=== PATIENT | male | born 1960 | race Caucasian/White ===

== ENCOUNTER 2016-08-07 13:44 | Inpatient (IN) ==
[2016-08-07] MEDS ORDERED: *HR* Morphine 2 MG/ML SYRINGE IVP PRN (17:17)
[2016-08-07] MEDS ORDERED: Ondansetron 4 MG/2 ML VIAL IVP PRN (17:17)
[2016-08-07] MEDS ORDERED: Acetaminophen 325 MG TABLET PO PRN (17:17)
[2016-08-07] MEDS ORDERED: *HR* HYDROcodone/Acet 5/325 mg TABLET PO PRN (17:17)
[2016-08-07] MEDS ORDERED: Naloxone 0.4 MG/ML INJ IVP PRN (17:17)
[2016-08-07] MEDS ORDERED: Fluticasone Propionate Nasal 50 MCG/SPRAY BOTTLE NS PRN (17:19)
[2016-08-07] MEDS ORDERED: Loratadine 10 MG TABLET PO PRN (17:19)
--- NOTE | 2016-08-07 17:23 | Internal Med History&Physical ---
Date of Encounter: 08/07/16 Time of Encounter: 17:22 Assessment and Plan (1) Sepsis Current visit: Yes Status: Acute Sepsis criteria met with fever, tachycardia,leukocytosis and pneumonia Blood culture has been drawn and sent in the ER Will send sputum culture Patient received one dose of levaquin Will change to Zosyn for borader coverage and anerobic coverage No evidence of organ damage, BP is WNL, PLT WNL, normal lactate Patient will be placed NPO Continue D5/0.9% saline at 100cc/hr Qualifiers: Sepsis type: sepsis due to unspecified organism Qualified Code(s): A41.9 - Sepsis, unspecified organism (2) Pneumonia Current visit: Yes Status: Acute Based on history and location of infiltrates, most likely aspiration pneumonia Follow sputum culture Send urine legionella and Strep Mgt as in sepsis as above No increasing O2 requirement at this time, keep on pulse ox continuously Qualifiers: Pneumonia type: aspiration pneumonia Aspiration pneumonia type: unspecified Laterality: right Lung location: lower lobe of lung Qualified Code(s): J69.0 - Pneumonitis due to inhalation of food and vomit (3) Dysphagia Current visit: Yes Status: Chronic Speech eval NPO for now, except medications , which may be given in thickened liquids Qualifiers: Dysphagia type: oropharyngeal phase Qualified Code(s): R13.12 - Dysphagia, oropharyngeal phase (4) Hypertension Current visit: Yes Status: Chronic Resume home meds Qualifiers: Hypertension type: essential hypertension Qualified Code(s): I10 - Essential (primary) hypertension (5) Cerebral palsy Current visit: Yes Status: Chronic Chronic, stable Qualifiers: Cerebral palsy type: unspecified type Qualified Code(s): G80.9 - Cerebral palsy, unspecified Internal Medicine - H&P: HPI Chief complaint: Feeling of unwell Admitted From: Home Plans for Post Hospital Care: Home History of present illness: Mr. De La Torre is a 56 year old male History is obtained from patient's uncle at the bedside and information collated from EMR 56 Y/ M with Cerebral palsy, MRDD, HTN Patient has been having recurrent aspiration for the past 3 months, his uncle states he has been having problems swallowing liquids, and has been "choking" for at least 3 months, they had a referral for speech evaluation, he also recently had a barium studies that was terminated because patient had microaspirations This morning, the patient called his uncle and complained of dizziness, chills, and feeling unwell, his uncle took him to the ER at [facility] where he was found to be febrile, tachycardic, and with evidence of pneumonia on X-ray, he was transferred here for further evaluation He is seen at bedside, comfortable in no form of distress, with an occasional drool. Work up here revealed fever of 100.6, tachcyardia, saturating 95% on room air, leukocytosis of 18,000 with left shift, chem is WNL. CXR is noted for RML and RLL infiltrates Past Med Surg Social Fam HX - Past Medical History Medical history: hypertension, other Psychiatric history: no psych history - Past Surgical History Surgical History: herniorrhaphy, orthopedic, other - Social History Smoking Status: Never smoker Smokeless Tobacco Status: No Alcohol use: none Drug use: none Internal Medicine - H&P: Meds Lovastatin 10 mg PO HS 05/16/15 [History] Metoprolol XL (24 HR) Succ [Toprol Xl] 25 mg PO DAILY 05/16/15 [History] Oxaprozin [Daypro] 600 mg PO BID 05/16/15 [History] Fexofenadine HCl [Allergy Relief] 180 mg PO DAILY PRN 08/07/16 [History] Fluticasone Propionate Nasal [Flonase] 50 mcg NS DAILY PRN 08/07/16 [History] Montelukast [Singulair] 10 mg PO DAILY 08/07/16 [History] Allergies gabapentin Adverse Reaction (Verified 08/07/16 11:51) Vomiting All Systems PM: A 10-system review of systems was performed and is negative for pertinent findings except as documented above in the HPI. - Constitutional Constitutional: as per HPI - EENT Eyes: as per HPI Ears: as per HPI Nose, mouth and throat: as per HPI - Cardiovascular Cardiovascular ROS IM: as per HPI - Respiratory Respiratory: as per HPI - Gastrointestinal Gastrointestinal: as per HPI - Musculoskeletal Musculoskeletal ROS IM: as per HPI - Integumentary Integumentary IM: as per HPI - Endocrine Endocrine IM: as per HPI - Hematologic/Lymphatic Hematologic/Lymphatic: as per HPI - Allergic/Immunologic Allergic/Immunologic: as per HPI - Constitutional Vitals: Temp Pulse Resp BP Pulse Ox 100.6 F H 99 18 123/85 95 08/07/16 15:18 08/07/16 15:18 08/07/16 15:18 08/07/16 15:18 08/07/16 15:18 General appearance: Present: A&O X 3, pleasant, no acute distress - Head Head exam: Present: atraumatic - Eye Eye exam: Present: PERRL - ENT ENT exam: Present: mucous membranes moist Additional comments: Drooling, no pharyngeal exudates, uvula is midline, no lymphadenopathy - Neck Neck exam general surgery: Present: supple, trachea midline. Absent: lymphadenopathy - Respiratory Respiratory exam: Present: CTAB. Absent: accessory muscle use, rales, rhonchi, wheezes - Cardiovascular Cardiovascular exam: Present: RRR, +S1, +S2. Absent: diastolic murmur, gallop, rubs, systolic murmur - GI/Abdominal GI/Abdominal exam: Present: normal bowel sounds, soft, no peritoneal signs. Absent: distended, tenderness - Extremities Exam Extremities exam: Present: warm, radial pulses palpable and symetrical. Absent : calf tenderness, cyanotic, pedal edema - Neurological Exam Neurological exam: Present: alert, CN II-XII intact, oriented X3, strengths equal and symetr throughout, speech deficit - Skin Skin exam: Present: dry, intact
[2016-08-07] MEDS: D5% in 0.9% NACL 1,000 ML IVC SCH (19:05)
[2016-08-07] MEDS: *HR* Heparin 5,000 UNIT/ML VIAL SQ SCH (23:01)
[2016-08-07] MEDS: Piperacillin/Tazobactam 3.375 GM in D5% in Water (Mini-Bag+) 100 ML IVPB SCH (23:05)
[2016-08-08 05:53] LABS: Basophils % 0.2 %; Eosinophils # 0.1 K/mcL (0.0-0.6); Eosinophils % 0.3 %; Hematocrit 40.4 % (37.5-50.1); Hemoglobin 13.4 g/dL (12.9-16.9); Immature Granulocytes % 0.5 % (0-4); Lymphocytes # 1.5 K/mcL (0.6-4.6); Lymphocytes % 7.7 %; Mean Corpuscular HGB Conc 33.2 g/dL (31.6-35.5); Mean Corpuscular Hemoglobin 29.8 pg (28.0-33.3); Mean Platelet Volume 10.5 fL (9.4-12.4); Monocytes # 1.6 K/mcL (0.0-1.3); Neutrophils # 16.6 K/mcL (1.6-8.9); Platelet Count 274 K/mcL (140-400); Red Blood Count 4.49 M/mcL (4.19-5.50); Red Cell Distribution Width 13.3 % (11.5-14.5); Segmented Neutrophils % 83.3 %
[2016-08-08 06:10] LABS: BUN/Creatinine Ratio 15 (6-26); Blood Urea Nitrogen 13 mg/dL (8-26); Calcium 8.9 mg/dL (8.6-10.8); Carbon Dioxide 26 mEq/L (19-29); Chloride 106 mEq/L (98-109); Glucose 133 mg/dL (70-99); Osmolality,Calculated 292 (280-300); Potassium 3.7 mEq/L (3.5-4.5); Sodium 140 mEq/L (136-145); eGFR For African Americans > 60 (> 60); eGFR For Non-African Americans > 60 (> 60)
[2016-08-08] MEDS: *HR* Heparin 5,000 UNIT/ML VIAL SQ SCH ×3 (06:17→22:09)
[2016-08-08] MEDS: Piperacillin/Tazobactam 3.375 GM in D5% in Water (Mini-Bag+) 100 ML IVPB SCH ×3 (08:18→22:19)
[2016-08-08] MEDS: Diclofenac Sodium (24 HR) 100 MG TABLET PO SCH (08:22)
[2016-08-08] MEDS: Metoprolol XL (24 HR) Succ 25 MG TAB.ER.24H PO SCH (08:22)
[2016-08-08] MEDS: D5% in 0.9% NACL 1,000 ML IVC SCH (11:02)
[2016-08-08] MEDS ORDERED: *HR* HYDROcodone/Acet 10/325 mg TABLET PO PRN (12:11)
--- NOTE | 2016-08-08 12:11 | Internal Med Progress Note ---
Date of Encounter: 08/08/16 Time of Encounter: 12:10 - Assessment and plan (1) Sepsis Current Visit: Yes Status: Acute Assessment and plan: Sepsis criteria met with fever, tachycardia,leukocytosis and pneumonia Blood culture has been drawn and sent in the ER, pendin report Patient is afebrile, Tmax 102 08/07 Will send sputum culture Continue Zosyn Follow urine legionella and Strep No evidence of organ damage, BP is WNL, PLT WNL, normal lactate Continue IVF for now Qualifiers: Sepsis type: sepsis due to unspecified organism Qualified Code(s): A41.9 - Sepsis, unspecified organism (2) Pneumonia Current Visit: Yes Status: Acute Assessment and plan: Based on history and location of infiltrates, most likely aspiration pneumonia Follow sputum culture Send urine legionella and Strep Mgt as in sepsis as above No increasing O2 requirement at this time, keep on pulse ox continuously Qualifiers: Pneumonia type: aspiration pneumonia Aspiration pneumonia type: unspecified Laterality: right Lung location: lower lobe of lung Qualified Code(s): J69.0 - Pneumonitis due to inhalation of food and vomit (3) Dysphagia Current Visit: Yes Status: Chronic Assessment and plan: MBS with Orophayngeal phase dysphagia with aspiration 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 therapy Continue pureed diet and honey thickened liquids Speech therapy to continue to follow Qualifiers: Dysphagia type: oropharyngeal phase Qualified Code(s): R13.12 - Dysphagia, oropharyngeal phase (4) Hypertension Current Visit: Yes Status: Chronic Qualifiers: Hypertension type: essential hypertension Qualified Code(s): I10 - Essential (primary) hypertension (5) Cerebral palsy Current Visit: Yes Status: Chronic Assessment and plan: Functional, chronic, stable Qualifiers: Cerebral palsy type: unspecified type Qualified Code(s): G80.9 - Cerebral palsy, unspecified - Subjective Interval history: 56 M with MRDD, cerebaral palsy, functional at baseline and independent Admitted for management of sepsis secondary to recurrent aspiration pneumonia Seen at bedside, complains of a mild headache Speech and swallow eval noted for mid oropharyngeal and moderate pharyngeal dysphagia, MBS result noted for aspiration with thin liquds, diet has been modified per COIL CUTTER Remains afebrile, still with leukocytosis - Constitutional Vitals: Temp Pulse Resp BP Pulse Ox 97.4 F L 78 20 114/70 95 08/08/16 07:55 08/08/16 07:55 04/21/17 07:55 08/08/16 07:55 08/08/16 07:55 General appearance: Present: A&O X 3, pleasant, no acute distress - Head Head exam: Present: atraumatic, normocephalic - Eye Eye exam: Present: PERRL, conjuntiva pink, sclera anicteric Pupils: Present: PERRL - ENT ENT exam: Present: mucous membranes moist - Neck Neck exam general surgery: Present: supple, trachea midline. Absent: lymphadenopathy - Respiratory Respiratory exam: Present: CTAB. Absent: accessory muscle use, rales, rhonchi, wheezes - Cardiovascular Cardiovascular exam: Present: RRR, +S1, +S2. Absent: diastolic murmur, gallop, rubs, systolic murmur - GI/Abdominal GI/Abdominal exam: Present: normal bowel sounds, soft, no peritoneal signs. Absent: distended, tenderness - Extremities Exam Extremities exam: Present: warm, radial pulses palpable and symetrical. Absent : calf tenderness, cyanotic, pedal edema - Neurological Exam Neurological exam: Present: alert, CN II-XII intact, oriented X3, no focal deficits. Absent: pronater drift, facial droop, speech deficit - Skin Skin exam: Present: dry, intact Internal Medicine: Result - Labs CBC & Chem 7: 08/08/16 05:06 08/08/16 05:06 Labs: Short CBC 08/08/16 Range/Units 05:06 WBC 19.9 H (4.3-11.1) K/mcL Hgb 13.4 D (12.9-16.9) g/dL Hct 40.4 (37.5-50.1) % Plt Count 274 (140-400) K/mcL Neutrophils # 16.6 H (1.6-8.9) K/mcL BMP 08/08/16 05:06 Sodium 140 Potassium 3.7 Chloride 106 Carbon Dioxide 26 BUN 13 Creatinine 0.87 Glucose 133 H Calcium 8.9 - Impressions Impressions Videofluoroscopic Swallow 08/08/16 08:56 IMPRESSION: 1. Aspiration with thin liquids. Please see separate speech pathology report for full discussion of findings and recommendations. D/ / 08/08/2016 11:04:43 Sobia Mock MD / terrance Interpreting Provider: Sobia Mock MD Consult Discharge Plan - Plan Referrals: Yaniv Woodard DO [Primary Care Provider] - 08/15/16 11:30 am
[2016-08-09 04:53] LABS: Basophils % 0.2 %; Eosinophils % 0.3 %; Hematocrit 40.8 % (37.5-50.1); Hemoglobin 13.4 g/dL (12.9-16.9); Immature Granulocytes % 0.4 % (0-4); Lymphocytes # 0.5 K/mcL (0.6-4.6); Lymphocytes % 3.9 %; Mean Corpuscular HGB Conc 32.8 g/dL (31.6-35.5); Mean Corpuscular Hemoglobin 28.9 pg (28.0-33.3); Mean Corpuscular Volume 87.9 fL (83.0-100.0); Mean Platelet Volume 9.7 fL (9.4-12.4); Monocytes # 0.7 K/mcL (0.0-1.3); Monocytes % 5.5 %; Neutrophils # 11.3 K/mcL (1.6-8.9); Platelet Count 276 K/mcL (140-400); Red Blood Count 4.64 M/mcL (4.19-5.50); Red Cell Distribution Width 13.3 % (11.5-14.5); Segmented Neutrophils % 89.7 %
[2016-08-09 05:04] LABS: Hemoglobin A1C 5.2 %
[2016-08-09 05:05] LABS: BUN/Creatinine Ratio 14 (6-26); Blood Urea Nitrogen 12 mg/dL (8-26); Carbon Dioxide 23 mEq/L (19-29); Chloride 107 mEq/L (98-109); Glucose 102 mg/dL (70-99); Osmolality,Calculated 290 (280-300); Potassium 3.7 mEq/L (3.5-4.5); Sodium 140 mEq/L (136-145); eGFR For African Americans > 60 (> 60); eGFR For Non-African Americans > 60 (> 60)
[2016-08-09] MEDS: *HR* Heparin 5,000 UNIT/ML VIAL SQ SCH ×3 (07:28→20:59)
[2016-08-09] MEDS: Piperacillin/Tazobactam 3.375 GM in D5% in Water (Mini-Bag+) 100 ML IVPB SCH ×2 (08:24→17:03)
[2016-08-09] MEDS: D5% in 0.9% NACL 1,000 ML IVC SCH (08:25)
[2016-08-09] MEDS: Diclofenac Sodium (24 HR) 100 MG TABLET PO SCH (08:25)
[2016-08-09] MEDS: Metoprolol XL (24 HR) Succ 25 MG TAB.ER.24H PO SCH (08:25)
--- NOTE | 2016-08-09 11:36 | Internal Med Progress Note ---
Date of Encounter: 08/09/16 Time of Encounter: 11:36 - Assessment and plan (1) Sepsis Current Visit: Yes Status: Acute Assessment and plan: Sepsis criteria met with fever, tachycardia,leukocytosis and pneumonia Blood culture preliminary no growth Influenza negative Urine legionella and strep negative Patient is afebrile, Tmax 102 08/07 Continue Zosyn D/C IVF Anticipate d/c a.m if patient remains afebrile and leukocytosis improves Qualifiers: Sepsis type: sepsis due to unspecified organism Qualified Code(s): A41.9 - Sepsis, unspecified organism (2) Pneumonia Current Visit: Yes Status: Acute Assessment and plan: Based on history and location of infiltrates, most likely aspiration pneumonia Mgt as in sepsis as above No increasing O2 requirement at this time, keep on pulse ox continuously Qualifiers: Pneumonia type: aspiration pneumonia Aspiration pneumonia type: unspecified Laterality: right Lung location: lower lobe of lung Qualified Code(s): J69.0 - Pneumonitis due to inhalation of food and vomit (3) Dysphagia Current Visit: Yes Status: Chronic Assessment and plan: MBS with Orophayngeal phase dysphagia with aspiration 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 Continue pureed diet and honey thickened liquids Speech therapy to continue to follow Qualifiers: Dysphagia type: oropharyngeal phase Qualified Code(s): R13.12 - Dysphagia, oropharyngeal phase (4) Hypertension Current Visit: Yes Status: Chronic Assessment and plan: Controlled on current meds, continue same Qualifiers: Hypertension type: essential hypertension Qualified Code(s): I10 - Essential (primary) hypertension (5) Cerebral palsy Current Visit: Yes Status: Chronic Assessment and plan: Functional, chronic, stable Qualifiers: Cerebral palsy type: unspecified type Qualified Code(s): G80.9 - Cerebral palsy, unspecified - Subjective Interval history: 56 M with MRDD, cerebaral palsy, functional at baseline and independent Admitted for management of sepsis secondary to recurrent aspiration pneumonia Seen at bedside, still complains of headache Tolerating pureed diet Leukocytosis is improving - Constitutional Vitals: Temp Pulse Resp BP Pulse Ox 97.4 F L 79 13 140/83 95 08/09/16 11:30 08/09/16 11:30 08/09/16 11:30 08/09/16 11:30 08/09/16 11:30 General appearance: Present: A&O X 3, pleasant, no acute distress - Head Head exam: Present: atraumatic, normocephalic - Eye Eye exam: Present: PERRL, conjuntiva pink, sclera anicteric Pupils: Present: PERRL - Neck Neck exam general surgery: Present: supple, trachea midline. Absent: lymphadenopathy - Respiratory Respiratory exam: Present: CTAB. Absent: accessory muscle use, rales, rhonchi, wheezes - Cardiovascular Cardiovascular exam: Present: RRR, +S1, +S2. Absent: diastolic murmur, gallop, rubs, systolic murmur - GI/Abdominal GI/Abdominal exam: Present: normal bowel sounds, soft, no peritoneal signs. Absent: distended, tenderness - Extremities Exam Extremities exam: Present: warm, radial pulses palpable and symetrical. Absent : calf tenderness, cyanotic, pedal edema - Neurological Exam Neurological exam: Present: CN II-XII intact, oriented X3, no focal deficits, speech deficit. Absent: pronater drift, facial droop - Skin Skin exam: Present: dry, intact Internal Medicine: Result - Labs CBC & Chem 7: 08/09/16 03:49 08/09/16 03:49 Labs: Short CBC 08/09/16 Range/Units 03:49 WBC 12.6 H (4.3-11.1) K/mcL Hgb 13.4 (12.9-16.9) g/dL Hct 40.8 (37.5-50.1) % Plt Count 276 (140-400) K/mcL Neutrophils # 11.3 H (1.6-8.9) K/mcL BMP 08/09/16 03:49 Sodium 140 Potassium 3.7 Chloride 107 Carbon Dioxide 23 BUN 12 Creatinine 0.85 Glucose 102 H Calcium 9.0 Consult Discharge Plan - Plan Referrals: Yaniv Woodard DO [Primary Care Provider] - 08/15/16 11:30 am
[2016-08-10] MEDS: Piperacillin/Tazobactam 3.375 GM in D5% in Water (Mini-Bag+) 100 ML IVPB SCH ×2 (00:58→08:08)
[2016-08-10 04:52] LABS: Hematocrit 41.2 % (37.5-50.1); Hemoglobin 13.5 g/dL (12.9-16.9); Mean Corpuscular HGB Conc 32.8 g/dL (31.6-35.5); Mean Corpuscular Hemoglobin 28.8 pg (28.0-33.3); Mean Platelet Volume 9.5 fL (9.4-12.4); Monocytes # 0.5 K/mcL (0.0-1.3); Platelet Count 262 K/mcL (140-400); Red Blood Count 4.68 M/mcL (4.19-5.50); Red Cell Distribution Width 13.3 % (11.5-14.5)
[2016-08-10] MEDS: *HR* Heparin 5,000 UNIT/ML VIAL SQ SCH (05:19)
[2016-08-10 06:56] LABS: Lymphocytes # 0.9 K/mcL (0.6-4.6); Neutrophils # 3.4 K/mcL (1.6-8.9)
[2016-08-10 06:57] LABS: Platelet Estimate Normal (Normal)
[2016-08-10 07:22] VITALS: BP 124/83
[2016-08-10] MEDS: Metoprolol XL (24 HR) Succ 25 MG TAB.ER.24H PO SCH (08:08)
[2016-08-10] MEDS: Diclofenac Sodium (24 HR) 100 MG TABLET PO SCH (08:08)
--- NOTE | 2016-08-10 11:12 | Physician Discharge Referral ---
Home Health/Hosp Referral Info Transfer to: Home Health (SPEECH THERAPY OUTPATIENT DAILY) Attending Provider: Dr. Lopez Provider in Charge Post Discharge: PCP - Diagnosis (1) Sepsis Priority: Primary Status: Resolved (2) Pneumonia Priority: Primary Status: Acute (3) Dysphagia Priority: Primary Status: Chronic (4) Hypertension Priority: Secondary Status: Chronic (5) Cerebral palsy Priority: Secondary Status: Chronic - Respiratory Orders Smoking Cessation: Smoking cessation has been advised. For more information, call the [place] Tobacco Quit Line at 4-881-WMKV-NOW. - Diet/Nutrition Diet/Nutrition: List: Honey thickened liquids diet Pureed diet Speech therapy for swallowing exercises daily for 30 days - Services Needed Following services are medically necessary services: Speech Therapy (Speech therapy for swallowing exercises daily) - Transfer Medications Home Medications: Lovastatin 10 mg PO HS 05/16/15 [History] Metoprolol XL (24 HR) Succ [Toprol Xl] 25 mg PO DAILY 05/16/15 [History] Oxaprozin [Daypro] 600 mg PO BID 05/16/15 [History] Fexofenadine HCl [Allergy Relief] 180 mg PO DAILY PRN 08/07/16 [History] Fluticasone Propionate Nasal [Flonase] 50 mcg NS DAILY PRN 08/07/16 [History] Montelukast [Singulair] 10 mg PO DAILY 08/07/16 [History] Allergies/Adverse Reactions: Allergies gabapentin Adverse Reaction (Verified 08/07/16 11:51) Vomiting Certification: Further, I certify that my clinical findings support that this patient is homebound (i.e. absences from home require considerable and taxing effort and are for medical reasons or episcopalian services or infrequently or short duration when for other reasons) because: Homebound Reason: Leaving home requires considerable and taxing effort due to condition Attestation: My signature below is to certify that this patient is under my care and that I, or nurse practitioner, or a physician's care assistant working with me, has a face-to -face encounter with this patient.
--- NOTE | 2016-08-10 11:18 | Discharge Summary ---
Date of Encounter: 08/10/16 Time of Encounter: 11:15 - Discharge Diagnosis (1) Sepsis Priority: Primary Status: Resolved Qualifiers: Sepsis type: sepsis due to unspecified organism Qualified Code(s): A41.9 - Sepsis, unspecified organism (2) Pneumonia Priority: Primary Status: Acute Qualifiers: Pneumonia type: aspiration pneumonia Aspiration pneumonia type: unspecified Laterality: right Lung location: lower lobe of lung Qualified Code(s): J69.0 - Pneumonitis due to inhalation of food and vomit (3) Dysphagia Priority: Primary Status: Chronic Qualifiers: Dysphagia type: oropharyngeal phase Qualified Code(s): R13.12 - Dysphagia, oropharyngeal phase (4) Hypertension Priority: Secondary Status: Chronic Qualifiers: Hypertension type: essential hypertension Qualified Code(s): I10 - Essential (primary) hypertension (5) Cerebral palsy Priority: Secondary Status: Chronic Qualifiers: Cerebral palsy type: unspecified type Qualified Code(s): G80.9 - Cerebral palsy, unspecified - Discharge Medications Prescriptions: Amoxicillin/Clavulanate [Augmentin] 875 mg PO BIDWM #10 tablet Home Medications: Lovastatin 10 mg PO HS 05/16/15 [History] Metoprolol XL (24 HR) Succ [Toprol Xl] 25 mg PO DAILY 05/16/15 [History] Oxaprozin [Daypro] 600 mg PO BID 05/16/15 [History] Fexofenadine HCl [Allergy Relief] 180 mg PO DAILY PRN 08/07/16 [History] Fluticasone Propionate Nasal [Flonase] 50 mcg NS DAILY PRN 08/07/16 [History] Montelukast [Singulair] 10 mg PO DAILY 08/07/16 [History] Amoxicillin/Clavulanate [Augmentin] 875 mg PO BIDWM #10 tablet 08/10/16 [Rx] Allergies/Adverse Reactions: Allergies gabapentin Adverse Reaction (Verified 08/07/16 11:51) Vomiting Date of admission: 08/07/16 17:17 Primary care physician: Yaniv Woodard DO Consults: 08/07/16 17:18 Consult to Speech Therapy [CONS] Routine Comment: Evaluate, develop and implement POC Reason for Consult: Recurrent aspiration Call Completed: Yes Discharging clinician: Boris Lopez Anticipated date of discharge: 08/10/16 - Patient Status Disposition: Home, Self-Care Condition: Good Functional capacity at discharge: independent ambulation Overall status at discharge: patient is back to baseline - Discharge Instructions Follow Up With: Yaniv Woodard DO [Primary Care Provider] - 08/15/16 11:30 am - Diet and Activity Activity: resume usual activities as tolerated Diet: other (Pureed diet, honey thickened liquids) Interval History: 56 Y/ M with Cerebral palsy, MRDD, HTN Patient has been having recurrent aspiration for the past 3 months, his uncle states he has been having problems swallowing liquids, and has been "choking" for at least 3 months, they had a referral for speech evaluation, he also recently had a barium studies that was terminated because patient had microaspirations Work up here revealed fever of 100.6, tachcyardia, saturating 95% on room air, leukocytosis of 18,000 with left shift, chem is WNL. 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 De La Torre is a 56 year old male with As above - Time Spent with Patient Total time spent providing and/or coordinating discharge services: Less than 30 minutes - Constitutional Vitals: Temp Pulse Resp BP Pulse Ox 98.5 F 88 18 124/83 96 08/10/16 07:21 08/10/16 07:21 08/10/16 07:21 08/10/16 07:21 08/10/16 07:21 General appearance: Present: A&O X 3, pleasant, no acute distress - Head Head exam: Present: atraumatic, normocephalic - Eye Eye exam: Present: PERRL, conjuntiva pink, sclera anicteric Pupils: Present: PERRL - Neck Neck exam general surgery: Present: supple, trachea midline. Absent: lymphadenopathy - Respiratory Respiratory exam: Present: CTAB. Absent: accessory muscle use, rales, rhonchi, wheezes - Cardiovascular Cardiovascular exam: Present: RRR, +S1, +S2. Absent: diastolic murmur, gallop, rubs, systolic murmur - GI/Abdominal GI/Abdominal exam: Present: normal bowel sounds, soft, no peritoneal signs. Absent: distended, tenderness - Extremities Exam Extremities exam: Present: warm, radial pulses palpable and symetrical. Absent : calf tenderness, cyanotic, pedal edema - Neurological Exam Neurological exam: Present: alert, CN II-XII intact, oriented X3, no focal deficits, speech deficit. Absent: pronater drift, facial droop - Skin Skin exam: Present: dry, intact
== END 2016-08-10 12:30 | disposition home or self-care (01) | DRG 871 ==
LOC: 2ANU
PROVIDERS: ADMIT Hospitalist; ATTEND Internal Medicine